=== PATIENT | female | born 1955 | race Caucasian/White ===

== ENCOUNTER → 2020-05-03 | Outpatient (CLI) | payer MEDICARE, BC ==
[~2020-05-03] MED LIST: ACET-1600 PO; ESTR1PAT10 TP; HYDR-3240 PO; LOSA1TAB19 PO; METH4TAB2 PO; METH750T87 PO; MULT-658 PO; ROSU5TAB PO
[2020-05-03 11:14] LABS: BASOPHILS # (AUTO) 0.04 x10^3/uL (0-0.1); BASOPHILS % (AUTO) 1 % (0-1); EOSINOPHILS # (AUTO) 0.12 x10^3/uL (0-0.4); EOSINOPHILS % (AUTO) 2 % (1-7); LYMPHOCYTES # (AUTO) 2.35 x10^3/uL (1-3.4); LYMPHOCYTES % (AUTO) 34 % (22-44); MD NO; MEAN CORPUSCULAR HGB CONC 32.4 g/dL (32.4-35.8); MEAN PLATELET VOLUME 8.5 fL (7.4-10.4); MICROSCOPIC NOT IND; MONOCYTES # (AUTO) 0.33 x10^3/uL (0.2-0.8); MONOCYTES % (AUTO) 5 % (2-9); NEUTROPHILS # (AUTO) 3.99 x10^3/uL (1.8-6.8); NEUTROPHILS % (AUTO) 59 % (42-75); PLATELET COUNT 349 x10^3/uL (130-400); RED BLOOD COUNT 4.72 x10^6/uL (3.82-5.3); RED CELL DISTRIBUTION WIDTH 13.1 % (9.6-15.2)
[2020-05-03 11:22] LABS: INTERNATIONAL NORMALIZED RATIO 0.97 (0.93-1.1)
[2020-05-03 11:25] LABS: ALBUMIN 4.1 g/dL (3.4-5.0); ANION GAP 6 mmol/L (5-15); CALCIUM 9.5 mg/dL (8.5-10.1); CHLORIDE 107 mmol/L (98-107)
[2020-05-03 11:29] LABS: ALANINE AMINOTRANSFERASE 28 U/L (12-78); ALKALINE PHOSPHATASE 77 U/L (45-117); BILIRUBIN,TOTAL 0.3 mg/dL (0.2-1.0); CREATININE 0.68 mg/dL (0.55-1.02); TOTAL PROTEIN 7.5 g/dL (6.4-8.2)
== END | disposition home or self-care (01) ==
LOC: STAR 09:59
PROVIDERS: ATTEND Neurological Surgery
DX: Z01.818 Encounter for other preprocedural examination (principal); Z20.828 Contact with and (suspected) exposure to other viral communicable diseases; M47.892 Other spondylosis, cervical region; M48.02 Spinal stenosis, cervical region; R94.31 Abnormal electrocardiogram [ECG] [EKG]; R82.90 Unspecified abnormal findings in urine
CPT/HCPCS: 36415; 71046; 80053; 81003; 85025; 85610; 85730; 87635

== ENCOUNTER 2020-05-07 05:27 | Inpatient (IN) | payer MEDICARE, BC ==
[~2020-05-07] VITALS: Ht 152.4 cm; Wt 64.6 kg
[~2020-05-07 05:27] MED LIST changes: -ACET-1600 PO; -ESTR1PAT10 TP; -HYDR-3240 PO; -METH4TAB2 PO; -METH750T87 PO; -MULT-658 PO
[2020-05-07] MEDS ORDERED: LACTATED RINGERS 1,000 ML IV SCH (06:00)
[2020-05-07] MEDS ORDERED: CHLORHEXIDINE 15 ML UDC MM ONE (06:00)
[2020-05-07] MEDS ORDERED: ESTR1PAT10 TP (06:04)
[2020-05-07] MEDS ORDERED: ACET-1600 PO (06:04)
[2020-05-07] MEDS ORDERED: MULT-658 PO (06:04)
[2020-05-07] MEDS ORDERED: BUPIVACAINE/PF 0.5% ONE (06:17)
[2020-05-07] MEDS ORDERED: EPINEPHRINE 1 MG/ML, 1ML ONE (06:17)
[2020-05-07] MEDS ORDERED: BACITRACIN 50,000 UNIT ONE (06:17)
[2020-05-07] MEDS ORDERED: FENTANYL PF 250 MCG/5ML ONE (06:43)
[2020-05-07] MEDS ORDERED: MIDAZOLAM 1 MG/ML, 2ML ONE (06:43)
[2020-05-07] MEDS ORDERED: KETAMINE 10 MG/ML, 20ML ONE (06:53)
[2020-05-07] MEDS ORDERED: DIAZEPAM 5 MG/ML, 2ML IV PRN ×2 (08:00)
[2020-05-07] MEDS ORDERED: ALBUTEROL SULFATE 2.5 MG/3 ML NPPB PRN (08:00)
[2020-05-07] MEDS ORDERED: MEPERIDINE/PF 25MG/0.5ML IVPush PRN (08:00)
[2020-05-07] MEDS ORDERED: KETOROLAC 30 MG/1 ML IV PRN (08:00)
[2020-05-07] MEDS ORDERED: HYDROmorphone 1 MG/ML, 1ML INJ IV PRN (08:00)
[2020-05-07] MEDS ORDERED: hydrALAzine 20 MG/ML, 1ML IV PRN (08:00)
[2020-05-07] MEDS ORDERED: ONDANSETRON 2MG/ML, 2ML IVPush PRN ×2 (08:00→09:30)
[2020-05-07] MEDS ORDERED: LABETALOL 5MG/ML, 20ML IV PRN (08:00)
[2020-05-07] MEDS ORDERED: OXYcodone 5 MG/5 ML ORAL.SOL UDC PO PRN (08:00)
[2020-05-07] MEDS ORDERED: METOCLOPRAMIDE 5 MG/ML, 2ML IV PRN (08:00)
[2020-05-07] MEDS ORDERED: PROMETHAZINE 25 MG/ML, 1ML IV PRN (08:00)
[2020-05-07] MEDS ORDERED: FENTANYL PF 100 MCG/2ML ONE (09:08)
[2020-05-07] MEDS: FENTANYL PF 100 MCG/2ML IV PRN ×3 (09:15→09:53)
[2020-05-07] MEDS ORDERED: OXYcodone 5 MG/5 ML ORAL.SOL UDC ONE (09:25)
[2020-05-07] MEDS ORDERED: METHOCARBAMOL 1,000 MG in DEXTROSE 5% 100 ML IV ONE (09:30)
[2020-05-07] MEDS ORDERED: PROMETHAZINE 25 MG/ML, 1ML IM PRN (09:30)
[2020-05-07] MEDS ORDERED: DIPHENHYDRAMINE 50 MG/ML, 1ML IM PRN (09:30)
[2020-05-07] MEDS ORDERED: DIPHENHYDRAMINE 50 MG CAPSULE PO PRN (09:30)
[2020-05-07] MEDS ORDERED: ESTRADIOL TP SCH (09:30)
[2020-05-07] MEDS ORDERED: SENNA/DOCUSATE TABLET PO PRN (09:30)
[2020-05-07] MEDS ORDERED: BISACODYL 10 MG SUPP PR PRN (09:30)
[2020-05-07] MEDS ORDERED: HYDROcodone/APAP 10/325 MG TABLET PO PRN (09:30)
[2020-05-07] MEDS ORDERED: MAGNESIUM HYDROXIDE 8%, 30ML UDC PO PRN (09:30)
[2020-05-07] MEDS ORDERED: DIPHENHYDRAMINE 50 MG/ML, 1ML IVPush PRN (09:30)
[2020-05-07] MEDS ORDERED: PHARMACY MAY ADJ FOR RENAL FX MC PRN (09:30)
[2020-05-07] MEDS ORDERED: LABETALOL 5MG/ML, 20ML IVPush PRN (09:30)
[2020-05-07] MEDS ORDERED: morphine SULFATE 10 MG/ML, 1ML IVPush PRN (09:30)
[2020-05-07] MEDS ORDERED: DIAZEPAM 5 MG/ML, 2ML ONE (09:35)
[2020-05-07] MEDS ORDERED: methylPREDNISolone*ACETATE* 80 MG/ML IM ONE (12:30)
[2020-05-07 12:45] VITALS: BP 131/82
[2020-05-07] MEDS ORDERED: CEFAZOLIN PMX 1GM/50ML 50 ML IVPB SCH (13:00)
[2020-05-07] MEDS: ARTIFICIAL TEARS 15 DROP/ML BOTTLE EACHEYE PRN ×2 (13:40→15:38)
[2020-05-07] MEDS: D5%-0.9% NACL+KCL 20MEQ 1,000 ML IV SCH (13:40)
[2020-05-07] MEDS: CEFAZOLIN PMX 1GM/50ML 50 ML IVPB SCH (15:38)
[2020-05-07] MEDS ORDERED: PROPOFOL 10 MG/ML, 50ML ONE (15:54)
[2020-05-07] MEDS ORDERED: ROCURONIUM 10MG/ML,5ML ONE (15:54)
[2020-05-07] MEDS ORDERED: ONDANSETRON 2MG/ML, 2ML ONE (15:54)
[2020-05-07] MEDS ORDERED: SUCCINYLCHOLINE 20 MG/ML, 10ML ONE (15:54)
[2020-05-07] MEDS ORDERED: CEFAZOLIN 1,000 MG ONE (15:54)
[2020-05-07] MEDS ORDERED: DEXAMETHASONE 4 MG/ML, 1ML ONE (15:54)
[2020-05-07 19:28] VITALS: BP 109/61
[2020-05-07] MEDS ORDERED: ACETAMINOPHEN 325 MG TABLET ONE (22:30)
[2020-05-07] MEDS ORDERED: ACETAMINOPHEN 325 MG TABLET PO PRN (22:30)
[2020-05-07 23:37] VITALS: BP 127/71
[2020-05-08] MEDS: D5%-0.9% NACL+KCL 20MEQ 1,000 ML IV SCH (00:20)
[2020-05-08] MEDS: CEFAZOLIN PMX 1GM/50ML 50 ML IVPB SCH (00:25)
[2020-05-08 03:42] VITALS: BP 136/82
[2020-05-08] MEDS: HYDROcodone/APAP 5/325 TABLET PO PRN ×2 (04:17→08:23)
[2020-05-08] MEDS ORDERED: METHOCARBAMOL 750 MG TABLET ONE (04:29)
[2020-05-08] MEDS ORDERED: METHOCARBAMOL 750 MG TABLET PO SCH (04:30)
[2020-05-08 08:24] VITALS: BP 127/82
[2020-05-08] MEDS ORDERED: HYDROCHLOROTHIAZIDE 12.5 MG CAPSULE PO SCH (09:00)
[2020-05-08] MEDS ORDERED: TEMPLATE NON-FORMULARY MED. (Losartan/Hydrochlorothiazide** (Losartan-Hctz 50-12.5 Mg Tab PO SCH (09:00)
[2020-05-08] MEDS ORDERED: LOSARTAN 50MG TABLET PO SCH (09:00)
[2020-05-08] MEDS ORDERED: METH4TAB2 PO (09:40)
[2020-05-08] MEDS ORDERED: METH750T87 PO (09:40)
[2020-05-08] MEDS ORDERED: HYDR-3240 PO (09:41)
[2020-05-09] MEDS ORDERED: METHOCARBAMOL 750 MG TABLET PO SCH (17:30)
== END 2020-05-08 11:15 | disposition home or self-care (01) | DRG 472 ==
LOC: ORIP 05:27 → 4NE 10:39 → DCLOUNGE 05-08 11:05
PROVIDERS: ADMIT Neurological Surgery; ATTEND Neurological Surgery
PROC: 0RB30ZZ Excision of Cervical Vertebral Disc, Open Approach (ICD-10-PCS; 2020-05-07)
PROC: 4A11X4G Monitoring of Peripheral Nervous Electrical Activity, Intraoperative, External Approach (ICD-10-PCS; 2020-05-07)
PROC: 0RG20A0 Fusion of 2 or more Cervical Vertebral Joints with Interbody Fusion Device, Anterior Approach, Anterior Column, Open Approach (ICD-10-PCS; principal; 2020-05-07 07:00)
DX: M48.02 Spinal stenosis, cervical region (principal); G99.2 Myelopathy in diseases classified elsewhere; M25.78 Osteophyte, vertebrae; M50.10 Cervical disc disorder with radiculopathy, unspecified cervical region
CPT/HCPCS: 72040; 95938; 95941; C1713; G0378; J0171; J0690; J1100; J2250; J2405; J2704; J3010; J3360; C1762; C1889; J0330; J1040; J2800; J3480; J7120

== ENCOUNTER 2020-05-21 20:55 | Observation (INO) | payer MEDICARE, BC ==
[~2020-05-21] VITALS: Ht 152.4 cm; Wt 66.1 kg
[~2020-05-21 20:55] MED LIST changes: +ACET-1600 PO; +ESTR1PAT10 TP; +HYDR-3240 PO; +METH4TAB2 PO; +METH750T87 PO; +MULT-658 PO
[2020-05-21] MEDS ORDERED: ONDANSETRON 2MG/ML, 2ML ONE (21:23)
[2020-05-21] MEDS ORDERED: ONDANSETRON 2MG/ML, 2ML IVPush ONE (21:30)
[2020-05-21 22:16] LABS: BASOPHILS % (AUTO) 1 % (0-1); EOSINOPHILS % (AUTO) 1 % (1-7); LYMPHOCYTES % (AUTO) 17 % (22-44); MEAN CORPUSCULAR HGB CONC 32.5 g/dL (32.4-35.8); MONOCYTES % (AUTO) 4 % (2-9); NEUTROPHILS % (AUTO) 78 % (42-75); PLATELET COUNT 452 x10^3/uL (130-400); RED BLOOD COUNT 4.26 x10^6/uL (3.82-5.3); RED CELL DISTRIBUTION WIDTH 13.1 % (9.6-15.2)
[2020-05-21 22:17] LABS: MD NO
[2020-05-21 22:27] LABS: ALBUMIN 3.5 g/dL (3.4-5.0); ANION GAP 5 mmol/L (5-15); CHLORIDE 105 mmol/L (98-107)
[2020-05-21 22:33] LABS: ALANINE AMINOTRANSFERASE 45 U/L (12-78); ALKALINE PHOSPHATASE 86 U/L (45-117); BILIRUBIN,TOTAL 0.3 mg/dL (0.2-1.0); CREATININE 0.61 mg/dL (0.55-1.02); TOTAL PROTEIN 6.9 g/dL (6.4-8.2); TROPONIN I < 0.015 ng/mL (0.000-0.045)
--- NOTE | 2020-05-21 22:46 | NUR ---
PT COMES IN WITH COMPLAINTS OF BEING DIZZY, AND THE LEFT SIDE OF HER BODY "UNABLE TO CONTROL IT". PRICE CHECKER ASSISTED PATIENT UP TO AMBULATE TO RESTROOM. PATIENT NOTED TO BE LEANING TO THE LEFT SIDE BUT WAS ABLE TO SLOWLY AMBULATE TO THE RESTROOM. STATED IT FELT LIKE EVERYTHING WAS SPINNING AROUND HER. MD AWARE OF OCCURENCE. WILL CON'T TO MONITOR
[2020-05-21] MEDS ORDERED: OMNIPAQUE 350 MG/ML, 75ML BOTTLE ONE (23:07)
[2020-05-22] MEDS ORDERED: DOCUSATE 100 MG CAPSULE PO PRN
[2020-05-22] MEDS ORDERED: SODIUM CHLORIDE 0.9% 1,000 ML IV SCH
[2020-05-22 00:44] VITALS: BP 121/77
[2020-05-22] MEDS ORDERED: POTASSIUM CHLORIDE 20 MEQ TAB.ER.PRT PO ONE ×2 (01:30→09:00)
[2020-05-22 06:27] LABS: BASOPHILS % (AUTO) 0 % (0-1); EOSINOPHILS % (AUTO) 1 % (1-7); LYMPHOCYTES % (AUTO) 22 % (22-44); MEAN CORPUSCULAR HEMOGLOBIN 29.7 pg (27.0-34.8); MEAN PLATELET VOLUME 7.8 fL (7.4-10.4); MONOCYTES % (AUTO) 5 % (2-9); NEUTROPHILS % (AUTO) 72 % (42-75); PLATELET COUNT 462 x10^3/uL (130-400); RED BLOOD COUNT 4.16 x10^6/uL (3.82-5.3); RED CELL DISTRIBUTION WIDTH 13.3 % (9.6-15.2)
[2020-05-22 06:37] LABS: ANION GAP 5 mmol/L (5-15); CALCIUM 8.8 mg/dL (8.5-10.1); CHLORIDE 109 mmol/L (98-107)
[2020-05-22 06:38] LABS: MD NO
[2020-05-22 06:40] LABS: CHOL/HDL RATIO 2.9; CHOLESTEROL, TOTAL 153 mg/dL (140-239); CREATININE 0.63 mg/dL (0.55-1.02); HDL CHOL % 35 % (28-40); HDL CHOLESTEROL (DIRECT) 53 mg/dL (40-60); LDL CHOLESTEROL,CALCULATED 84 mg/dL (54-169); LDL/HDL RATIO 1.6 (0.5-3.0); TRIGLYCERIDES 78 mg/dL (50-200); VLDL CHOLESTEROL 16 mg/dL (0-25)
[2020-05-22 06:52] VITALS: BP 127/79
[2020-05-22] MEDS ORDERED: LORazepam 2 MG/ML, 1ML IVPush PRN (08:00)
[2020-05-22] MEDS: ASPIRIN 81 MG TABLET CHEW PO/NG SCH (09:20)
[2020-05-22 12:19] VITALS: BP 124/82
[2020-05-22 15:50] LABS: MICROSCOPIC NOT IND
[2020-05-22 19:09] VITALS: BP 121/77
[2020-05-22] MEDS ORDERED: ATORVASTATIN 40 MG TABLET PO SCH (21:00)
[2020-05-23 00:24] VITALS: BP 127/83
[2020-05-23 06:46] LABS: BASOPHILS % (AUTO) 1 % (0-1); EOSINOPHILS % (AUTO) 2 % (1-7); LYMPHOCYTES % (AUTO) 30 % (22-44); MEAN CORPUSCULAR HEMOGLOBIN 29.7 pg (27.0-34.8); MEAN PLATELET VOLUME 7.9 fL (7.4-10.4); MONOCYTES % (AUTO) 6 % (2-9); NEUTROPHILS % (AUTO) 62 % (42-75); PLATELET COUNT 418 x10^3/uL (130-400); RED BLOOD COUNT 4.09 x10^6/uL (3.82-5.3); RED CELL DISTRIBUTION WIDTH 13.2 % (9.6-15.2)
[2020-05-23 06:49] LABS: MD NO
[2020-05-23 06:54] LABS: ANION GAP 6 mmol/L (5-15); CALCIUM 8.9 mg/dL (8.5-10.1); CHLORIDE 111 mmol/L (98-107)
[2020-05-23 06:56] LABS: CREATININE 0.53 mg/dL (0.55-1.02)
[2020-05-23 07:17] VITALS: BP 130/84
[2020-05-23] MEDS: ASPIRIN 81 MG TABLET CHEW PO/NG SCH (08:56)
[2020-05-23] MEDS ORDERED: ATOR40TA78 PO (11:59)
[2020-05-23] MEDS ORDERED: ASPI-515 PO/NG (11:59)
[2020-05-23 12:34] VITALS: BP 149/80
== END 2020-05-23 15:58 | disposition home or self-care (01) ==
LOC: ED 23:20 → EDIP 05-22 00:28 → INTOOBSV 05-22 00:28 → 5SO 05-22 00:36 → DCLOUNGE 05-23 15:49
PROVIDERS: ADMIT Family Medicine; ATTEND Family Medicine
DX: I63.9 Cerebral infarction, unspecified (principal); G45.9 Transient cerebral ischemic attack, unspecified; D72.829 Elevated white blood cell count, unspecified; D47.3 Essential (hemorrhagic) thrombocythemia; E87.6 Hypokalemia; I10 Essential (primary) hypertension; E78.5 Hyperlipidemia, unspecified; G46.2 Posterior cerebral artery syndrome; R27.0 Ataxia, unspecified; G47.00 Insomnia, unspecified; Z79.82 Long term (current) use of aspirin; Z91.040 Latex allergy status; Z79.899 Other long term (current) drug therapy; Z90.710 Acquired absence of both cervix and uterus; Z86.73 Personal history of transient ischemic attack (TIA), and cerebral infarction without residual deficits
CPT/HCPCS: 36415; 70450; 70496; 70498; 70551; 71045; 72125; 80048; 80053; 80061; 81003; 83735; 84484; 85025; 92523; 93005; 93306; 96361; 96374; 96375; 97162; 97166; 97530; 97535; 99285; G0378; J2060; J2405; J7030; Q9967